=== PATIENT | female | born 1960 | race Caucasian/White ===

== ENCOUNTER → 2017-10-26 | Outpatient (CLI) | payer OTHER ==
[~2017-10-26] MED LIST: ABAC300; ACEBUTCAFT PO; ACET325 PO; ACYC800 PO; ALBIPROI INH; ALBU.083IS IH; ALBU90I INH; ALBU90OI INH; ALBU90OI6 INH; ALBU90OI61 INH; ALBUIS IH; ALPR.5 PO; AMIT10 PO; AMIT25 PO; ATOR10 PO; AZIT250 PO; BENZ100A PO; CEPH500 PO; CETI10 PO; CETI5 PO; CIPHYDOTSU OT; CIPR500 PO; CLIN150 PO; CLOP75 PO; CYAN1000I IM; CYCL10 PO; DEXA2 PO; DULO30 PO; EPIN.3I IM; ERGO400 PO; ESCI20 PO; FLUO.1OPO OD; FURO20 PO; Flonase 0.05% N16 GM; GABA300 PO; HYDACE5 PO; HYDHCL25 PO; HYDPAM50 PO; Keflex500 MG PO; LEVFLO500 PO; LORA10 PO; MELO7.5 PO; MONT10T PO; MUPI2TO TOP; Micro-K10 MEQ; Mupirocin22 GM TP; NAPR375 PO; NAPR500 PO; NAPR550 PO; NITR.4SL SL; OXYACE5T PO; OXYC5 PO; POTCHL10ER PO; PRED10 PO; PSEU120ER PO; RANI150 PO; RXCYCL10 PO; RXHYDACE PO; RXNAPNA550 PO; TOPI25 PO; TRAM50 PO; TRIA80TC TOP; Ultram50 MG PO; VALACYCLOVIR1000 MG PO; ZOLP10 PO
== END ==
LOC: LAB 11:15 → LAB SHORT 11:15
DX: L98.499 Non-pressure chronic ulcer of skin of other sites with unspecified severity (principal)
CPT/HCPCS: 87070; 87205

== ENCOUNTER → 2018-10-03 | Outpatient (CLI) | payer OTHER | END | disposition home or self-care (01) | LOC: LAB 19:04 → LAB SHORT 19:04 | DX: N39.0 Urinary tract infection, site not specified (principal) | CPT/HCPCS: 87086 ==

== ENCOUNTER 2022-09-01 10:47 | Emergency (ER) | payer OTHER ==
[~2022-09-01] VITALS: Ht 149.9 cm; Wt 77.6 kg
[~2022-09-01 10:47] MED LIST changes: +HYDR1TAB94 PO
[2022-09-01 11:48] LABS: BASOPHILS ABSOLUTE AUTO 0.06 K/mm3 (0.00-0.23); BASOPHILS PERCENT AUTO 1 % (0-2); EOSINOPHILS ABSOLUTE AUTO 0.28 K/mm3 (0.00-0.68); EOSINOPHILS PERCENT AUTO 3 % (0-6); Hematocrit 38.1 % (33.0-51.0); Hemoglobin 12.3 g/dL (11.5-16.0); IMMATURE GRAN ABSOLUTE AUTO 0.09 K/mm3 (0.00-0.10); IMMATURE GRAN PERCENT AUTO 1 % (0-1); LYMPHOCYTES ABSOLUTE AUTO 2.21 K/mm3 (0.84-5.20); LYMPHOCYTES PERCENT AUTO 22 % (21-46); MONOCYTES ABSOLUTE AUTO 0.93 K/mm3 (0.16-1.47); MONOCYTES PERCENT AUTO 9 % (4-13); Mean Corpuscular HGB Conc 32.3 g/dL (31.5-36.5); Mean Corpuscular Volume 84 fL (80-100); Mean Platelet Volume 8.4 fL (9.1-12.4); NEUTROPHILS ABSOLUTE AUTO 6.58 K/mm3 (1.96-9.15); NEUTROPHILS PERCENT AUTO 65 % (41-73); Platelet Count 351 K/mm3 (150-400); RDW Coefficient Variation 18.8 % (11.7-14.2); RDW Standard Deviation 57.1 fL (35.1-46.3); Red Blood Cell Count 4.56 M/mm3 (3.80-5.20); White Blood Cell Count 10.15 K/mm3 (4.00-11.30)
[2022-09-01 12:02] LABS: Albumin, Blood 3.1 g/dL (3.4-5.0); Albumin/Globulin Ratio 0.8 (0.8-1.8); Bilirubin, Total 0.2 mg/dL (0.1-1.0); Bun/Creatinine Ratio 36.6 (12.0-20.0); Calcium, Blood 8.9 mg/dL (8.5-10.1); Creatinine, Blood 0.68 mg/dL (0.40-1.00); Globulin, Blood 3.7 g/dL (2.2-4.0); Potassium, Blood 4.4 mmol/L (3.5-5.5); Total Protein, Blood 6.8 g/dL (6.4-8.2)
[2022-09-01] MEDS ORDERED: LOPE2C PO (15:20)
[2022-09-01] MEDS ORDERED: CEPH500 PO (15:20)
== END 2022-09-01 15:33 | disposition home or self-care (01) ==
LOC: ER 10:47
PROVIDERS: Student in an Organized Health Care Education/Training Program
DX: L03.113 Cellulitis of right upper limb (principal); Z88.8 Allergy status to other drugs, medicaments and biological substances; Z88.0 Allergy status to penicillin; Z88.5 Allergy status to narcotic agent; Z88.1 Allergy status to other antibiotic agents; Z88.6 Allergy status to analgesic agent; Z88.2 Allergy status to sulfonamides; Z79.899 Other long term (current) drug therapy; F17.210 Nicotine dependence, cigarettes, uncomplicated
CPT/HCPCS: 36415; 80053; 85025; J1885

== ENCOUNTER → 2023-03-22 | Outpatient (CLI) | payer OTHER ==
[~2023-03-22] MED LIST changes: +AMITRIPTYLINE100 M2 PO; +LOPE2C PO; +MYRBETRIQ50 MG PO; +PROAIR DIGIHAL90 MCG IH; +SITA50T2 PO; +TIZA4 PO
== END ==
LOC: PLD 07:50 → LAB SHORT 07:50
DX: R23.4 Changes in skin texture (principal)
CPT/HCPCS: 88305; 88312; 88313

== ENCOUNTER → 2023-04-09 | Outpatient (CLI) | payer OTHER ==
[2023-04-09 10:32] LABS: BASOPHILS ABSOLUTE AUTO 0.09 K/mm3 (0.00-0.23); BASOPHILS PERCENT AUTO 1 % (0-2); EOSINOPHILS ABSOLUTE AUTO 0.21 K/mm3 (0.00-0.68); EOSINOPHILS PERCENT AUTO 2 % (0-6); Hematocrit 40.6 % (33.0-51.0); IMMATURE GRAN ABSOLUTE AUTO 0.03 K/mm3 (0.00-0.10); IMMATURE GRAN PERCENT AUTO 0 % (0-1); LYMPHOCYTES ABSOLUTE AUTO 1.89 K/mm3 (0.84-5.20); LYMPHOCYTES PERCENT AUTO 19 % (21-46); MONOCYTES ABSOLUTE AUTO 0.79 K/mm3 (0.16-1.47); MONOCYTES PERCENT AUTO 8 % (4-13); Mean Corpuscular HGB 26.8 pg (26.0-34.0); Mean Corpuscular Volume 84 fL (80-100); Mean Platelet Volume 8.6 fL (9.1-12.4); NEUTROPHILS ABSOLUTE AUTO 6.71 K/mm3 (1.96-9.15); NEUTROPHILS PERCENT AUTO 69 % (41-73); Platelet Count 376 K/mm3 (150-400); RDW Coefficient Variation 18.2 % (11.7-14.2); RDW Standard Deviation 55.6 fL (35.1-46.3); Red Blood Cell Count 4.85 M/mm3 (3.80-5.20); White Blood Cell Count 9.72 K/mm3 (4.00-11.30)
== END | disposition home or self-care (01) ==
LOC: LAB SHORT 10:27 → LAB 10:27
PROVIDERS: Physician Assistant
DX: J34.0 Abscess, furuncle and carbuncle of nose (principal); J32.9 Chronic sinusitis, unspecified
CPT/HCPCS: 85025; 86695; 86696

== ENCOUNTER → 2023-04-09 | Outpatient (CLI) | payer OTHER | END | disposition home or self-care (01) | LOC: LAB 10:11 → LAB SHORT 10:11 | DX: J34.0 Abscess, furuncle and carbuncle of nose (principal) | CPT/HCPCS: 87070; 87077; 87147; 87186; 87205 ==

== ENCOUNTER → 2023-05-06 | Outpatient (CLI) | payer OTHER ==
[~2023-05-06] MED LIST changes: +ATORVASTATIN CA80 M1 PO; +METFORMIN HCL500 M3 PO; +Norco 5-325 MG PO; +TIZANIDINE HCL2 M1 PO
== END ==
LOC: LAB 14:52 → LAB SHORT 14:52
PROVIDERS: Physician Assistant
DX: A49.02 Methicillin resistant Staphylococcus aureus infection, unspecified site (principal)
CPT/HCPCS: 86695; 86696

== ENCOUNTER 2023-05-09 11:26 | Inpatient (IN) | payer OTHER ==
[~2023-05-09] VITALS: Ht 149.9 cm; Wt 80.1 kg
[~2023-05-09 11:26] MED LIST changes: -ATORVASTATIN CA80 M1 PO; -METFORMIN HCL500 M3 PO; -Norco 5-325 MG PO; -TIZANIDINE HCL2 M1 PO
--- NOTE | 2023-05-09 12:45 | NUR ---
pt arrived as direct admit, pt [id number], ambulates well. notified dr. lee, physician, of her arrival. pt reports significant pain but is managing at this time. pt requested to be switched to a confidential status r/t ex spouse and requested no visitors or calls except from roomate and son. notified primer charger and admitting to change status. pt thankful. report given to primary rn Nisreen. pt has call light.
[2023-05-09 12:58] VITALS: BP 108/70
[2023-05-09] MEDS ORDERED: ATORVASTATIN CA80 M1 PO (13:26)
[2023-05-09] MEDS ORDERED: GABA300 PO (13:27)
[2023-05-09] MEDS ORDERED: Norco 5-325 MG PO (13:28)
[2023-05-09] MEDS ORDERED: HYDPAM50 PO (13:29)
[2023-05-09] MEDS ORDERED: METFORMIN HCL500 M3 PO (13:30)
[2023-05-09] MEDS ORDERED: MONT10T PO (13:31)
[2023-05-09] MEDS ORDERED: TIZANIDINE HCL2 M1 PO (13:32)
[2023-05-09 13:56] LABS: BASOPHILS ABSOLUTE AUTO 0.06 K/mm3 (0.00-0.23); BASOPHILS PERCENT AUTO 0 % (0-2); EOSINOPHILS PERCENT AUTO 1 % (0-6); Hematocrit 40.7 % (33.0-51.0); Hemoglobin 13.4 g/dL (11.5-16.0); IMMATURE GRAN ABSOLUTE AUTO 0.07 K/mm3 (0.00-0.10); IMMATURE GRAN PERCENT AUTO 0 % (0-1); LYMPHOCYTES ABSOLUTE AUTO 2.16 K/mm3 (0.84-5.20); LYMPHOCYTES PERCENT AUTO 14 % (21-46); MONOCYTES ABSOLUTE AUTO 1.26 K/mm3 (0.16-1.47); MONOCYTES PERCENT AUTO 8 % (4-13); Mean Corpuscular HGB 27.5 pg (26.0-34.0); Mean Corpuscular HGB Conc 32.9 g/dL (31.5-36.5); Mean Corpuscular Volume 84 fL (80-100); Mean Platelet Volume 8.7 fL (9.1-12.4); NEUTROPHILS ABSOLUTE AUTO 12.15 K/mm3 (1.96-9.15); NEUTROPHILS PERCENT AUTO 76 % (41-73); Platelet Count 404 K/mm3 (150-400); RDW Coefficient Variation 17.8 % (11.7-14.2); RDW Standard Deviation 54.6 fL (35.1-46.3); Red Blood Cell Count 4.87 M/mm3 (3.80-5.20)
--- NOTE | 2023-05-09 14:15 | NUR ---
GEOPHYSICIST IS LOCKED IN DRAWER 211
[2023-05-09 14:19] LABS: Albumin, Blood 3.2 g/dL (3.4-5.0); Albumin/Globulin Ratio 0.8 (0.8-1.8); Bilirubin, Total 0.4 mg/dL (0.1-1.0); Bun/Creatinine Ratio 23.8 (12.0-20.0); Calcium, Blood 9.6 mg/dL (8.5-10.1); Creatinine, Blood 0.63 mg/dL (0.40-1.00); Globulin, Blood 4.2 g/dL (2.2-4.0); Potassium, Blood 3.9 mmol/L (3.5-5.5); Total Protein, Blood 7.4 g/dL (6.4-8.2)
[2023-05-09 16:53] VITALS: BP 122/66
--- NOTE | 2023-05-09 18:31 | NUR ---
SHIFT SUMMARY NEW ADMIT FOR FACIAL CELLULITIS. IV ABX RUNNING, TOLERATING PO INTAKE. AMBULATORY IN ROOM, AND HALLS. VSS, PAIN MANAGED WITH PO MEDICATION. AOX4. PLAN FOR ENT CONSULT. NOTED SWELLING AND REDDNESS OUTLINED WITH MARKER. DENIES DIFFICULTY BREATHING AND SOB. ABLE TO EAT SOFT DIET.PATIENT IS AWARE OF UPDATED PLAN. CALL LIGHT IN REACH.
[2023-05-09 20:51] VITALS: BP 118/66
--- NOTE | 2023-05-10 04:25 | NUR ---
SHIFT SUMMARY NOC. PT A/O X4 THIS SHIFT. PT NPO AFTER MIDNIGHT ASIDE FROM TYLENOL FOR PAIN. PT VOIDING URINE AND INDEPENDENT IN THE ROOM. PT'S LEFT JAW IS OUTLINED AND NOT PROGRESSING OUTSIDE LINES. SMALL AMOUNT OF PERULENT DRAINAGE NOTED DURING SHIFT. PT MEDICATED FOR PAIN WITH RELIEF. PT RESTED WITH EYES CLOSED AND CALL LIGHT IN REACH.
[2023-05-10 04:56] VITALS: BP 116/66
[2023-05-10 07:15] VITALS: BP 98/64
[2023-05-10 08:27] LABS: BASOPHILS ABSOLUTE AUTO 0.07 K/mm3 (0.00-0.23); BASOPHILS PERCENT AUTO 1 % (0-2); EOSINOPHILS ABSOLUTE AUTO 0.53 K/mm3 (0.00-0.68); EOSINOPHILS PERCENT AUTO 4 % (0-6); Hematocrit 38.3 % (33.0-51.0); Hemoglobin 12.3 g/dL (11.5-16.0); IMMATURE GRAN ABSOLUTE AUTO 0.06 K/mm3 (0.00-0.10); IMMATURE GRAN PERCENT AUTO 1 % (0-1); LYMPHOCYTES ABSOLUTE AUTO 1.33 K/mm3 (0.84-5.20); LYMPHOCYTES PERCENT AUTO 11 % (21-46); MONOCYTES ABSOLUTE AUTO 1.13 K/mm3 (0.16-1.47); MONOCYTES PERCENT AUTO 9 % (4-13); Mean Corpuscular HGB 27.5 pg (26.0-34.0); Mean Corpuscular HGB Conc 32.1 g/dL (31.5-36.5); Mean Corpuscular Volume 86 fL (80-100); Mean Platelet Volume 8.6 fL (9.1-12.4); NEUTROPHILS ABSOLUTE AUTO 9.13 K/mm3 (1.96-9.15); NEUTROPHILS PERCENT AUTO 75 % (41-73); Platelet Count 356 K/mm3 (150-400); RDW Coefficient Variation 17.9 % (11.7-14.2); RDW Standard Deviation 55.9 fL (35.1-46.3); Red Blood Cell Count 4.47 M/mm3 (3.80-5.20); White Blood Cell Count 12.25 K/mm3 (4.00-11.30)
[2023-05-10 08:52] LABS: Bun/Creatinine Ratio 23.3 (12.0-20.0); Calcium, Blood 9.3 mg/dL (8.5-10.1); Creatinine, Blood 0.99 mg/dL (0.40-1.00); Potassium, Blood 4.9 mmol/L (3.5-5.5)
--- NOTE | 2023-05-10 11:30 | NUR ---
DR. COUGHLIN WAS JUST AT PATIENTS BEDSIDE TO DO AN I&D OF HER LEFT FACIAL CHEEK. DR. COUGHLIN FLUSHED THE INCISION AND THEN PACKED IDOFOAM PACKING IN HER LEFT CHEEK. DR. COUGHLIN REPORTED "REPACK THE LEFT CHEEK IDOFOAM DAILY AND CONTINUE IV ABX UNTIL THE SWELLING IN THE CHEEK HAS GONE DOWN. NO NEED TO FOLLOW UP WITH ME AFTER". PATIENT TOLERATED THE PROCEDURE WELL. SHE IS SITTING UP IN BED WITH CALL LIGHT IN REACH.
[2023-05-10 14:32] VITALS: BP 96/48
--- NOTE | 2023-05-10 15:49 | NUR ---
SHIFT SUMMARY: LEFT FACIAL SWELLING NO SIGINIFICANT CHANGES SINCE DR. COUGHLIN CAME BY EARLIER THIS SHIFT. PATIENTS LEFT FACIAL CHEEK IS STILL SWOLLEN AND RED WITH THE INCISION FROM DR. COUGHLIN THAT IS OPEN TO AIR. A SMALL TAB OF THE IDOFOAM STRIP IS HANGING OUT THAT DR. COUGHLIN PACKED AND IS STILL INTACT. PATIENT REPORTS A "SORE" FEELING TO THE LEFT SIDE OF HER FACE. PAIN IS MANAGED WITH PO NORCO AT THIS TIME. THIS NURSE EDUCATED THROUGHOUT SHIFT TO NOT PICK AT HER CHEEK SO NOT CAUSE MORE INFECTION RISK/INFLAMMATION TO HER CHEEK. PATIENT VERBALIZED UNDERSTANDING AND HAD NO FURTHER QUESTIONS AT THIS TIME. SHE IS TOLERATING PO INTAKE AND IS VOIDING. PATIENT IS INDEP. IN THE ROOM. SHE IS SITTING AT THE SIDE OF THE BED WITH CALL LIGHT IN REACH. THE PLAN IS TO CONTINUE IV ABX AND PAIN MANAGEMENT.
[2023-05-10 19:12] VITALS: BP 135/99
--- NOTE | 2023-05-11 04:32 | NUR ---
SHIFT SUMMARY PT ABLE TO REST T/O NIGHT. GETTING UP TO VOID, TOLERATING PO INTAKE. PT MEDICATED PER EMAR, PT STATES FEELING A FULLNESS IN HER FACE WHERE THR PACKING IS. REDNESS IS THE FACE HAS GONE DOWN, SCANT AMOUNT OF DRAINAGE COMING OUT. PT EAGER TO GO HOME. NO OTHER CONCERNS AT THIS TIME. CALL LIGHT WITHIN REACH.
[2023-05-11 04:42] VITALS: BP 111/53
[2023-05-11 04:48] LABS: BASOPHILS ABSOLUTE AUTO 0.06 K/mm3 (0.00-0.23); BASOPHILS PERCENT AUTO 1 % (0-2); EOSINOPHILS ABSOLUTE AUTO 0.54 K/mm3 (0.00-0.68); EOSINOPHILS PERCENT AUTO 7 % (0-6); Hematocrit 35.9 % (33.0-51.0); Hemoglobin 11.5 g/dL (11.5-16.0); IMMATURE GRAN ABSOLUTE AUTO 0.05 K/mm3 (0.00-0.10); IMMATURE GRAN PERCENT AUTO 1 % (0-1); LYMPHOCYTES ABSOLUTE AUTO 1.66 K/mm3 (0.84-5.20); LYMPHOCYTES PERCENT AUTO 21 % (21-46); MONOCYTES ABSOLUTE AUTO 0.86 K/mm3 (0.16-1.47); MONOCYTES PERCENT AUTO 11 % (4-13); Mean Corpuscular HGB 27.5 pg (26.0-34.0); Mean Corpuscular Volume 86 fL (80-100); Mean Platelet Volume 8.5 fL (9.1-12.4); NEUTROPHILS ABSOLUTE AUTO 4.89 K/mm3 (1.96-9.15); NEUTROPHILS PERCENT AUTO 61 % (41-73); Platelet Count 324 K/mm3 (150-400); RDW Coefficient Variation 17.5 % (11.7-14.2); RDW Standard Deviation 55.7 fL (35.1-46.3); Red Blood Cell Count 4.18 M/mm3 (3.80-5.20); White Blood Cell Count 8.06 K/mm3 (4.00-11.30)
[2023-05-11 05:26] LABS: Albumin, Blood 2.6 g/dL (3.4-5.0); Anion Gap 3 mmol/L (6-16); Blood Urea Nitrogen 27 mg/dL (8-24); CO2, Blood 30 mmol/L (21-32); Calcium, Blood 8.9 mg/dL (8.5-10.1); Chloride, Blood 108 mmol/L (98-108); Glomerular Filtration Rate 82 (60-); Glucose, Blood 149 mg/dL (70-99); Phosphorus, Blood 4.1 mg/dL (2.5-4.9); Potassium, Blood 4.4 mmol/L (3.5-5.5); Sodium, Blood 141 mmol/L (136-145)
[2023-05-11 07:32] VITALS: BP 121/43
[2023-05-11] MEDS ORDERED: CUBICIN RF500 M1 IV (11:28)
--- NOTE | 2023-05-11 12:41 | NUR ---
DISCHARGE NOTE: PATIENT WAS EDUCATED ON DISCHARGE INSTRUCTIONS. SHE VERBALIZED UNDERSTANDING OF INSTRUCTIONS AND HAD NO FURTHER QUESTIONS AT THIS TIME. HER HARD SCRIPT WAS GIVEN TO THE PATIENT. HER LEFT FACIAL CHEEK HAS PACKING THAT WAS PLACED BY THIS NURSE THIS SHIFT AND IS INTACT. PATIENT HAS A SMALL AMOUNT OF IDOFOAM STRIP IN HER INCISION SITE PER DR. COUGHLIN'S VERBAL ORDERS FROM YESTERDAY TO BE CHANGED DAILY. HER POWERGLIDE WAS PLACED AND IS IN HER LEFT FOREARM AND IS INTACT. SHE IS TOLERATING PO INTAKE AND IS VOIDING. PATIENT IS DRESSED AND HAS PERSONAL ITEMS IN THE ROOM GATHERED. SHE IS AWAITING FOR HER RIDE TO PICK HER UP AND TAKE HER HOME.
--- NOTE | 2023-05-11 13:03 | NUR ---
PATIENT REFUSED A WHEELCHAIR AND IS WALKING OUT TO HER RIDE. SHE HAS ALL OF HER PERSONAL BELONGINGS IN HAND.
== END 2023-05-11 13:04 | disposition home or self-care (01) | DRG 638 ==
LOC: SURS 11:26
PROVIDERS: Family Medicine; ADMIT Family Medicine
PROC: 0J913ZZ Drainage of Face Subcutaneous Tissue and Fascia, Percutaneous Approach (ICD-10-PCS; principal; 2023-05-10)
DX: E11.628 Type 2 diabetes mellitus with other skin complications (principal); L02.01 Cutaneous abscess of face; L03.211 Cellulitis of face; J44.9 Chronic obstructive pulmonary disease, unspecified; M79.7 Fibromyalgia; F41.9 Anxiety disorder, unspecified; B95.62 Methicillin resistant Staphylococcus aureus infection as the cause of diseases classified elsewhere; N32.81 Overactive bladder; E11.40 Type 2 diabetes mellitus with diabetic neuropathy, unspecified; Z88.1 Allergy status to other antibiotic agents; Z88.2 Allergy status to sulfonamides; Z88.5 Allergy status to narcotic agent; Z88.0 Allergy status to penicillin; Z88.8 Allergy status to other drugs, medicaments and biological substances; Z86.73 Personal history of transient ischemic attack (TIA), and cerebral infarction without residual deficits; Z79.891 Long term (current) use of opiate analgesic; Z79.84 Long term (current) use of oral hypoglycemic drugs; Z79.899 Other long term (current) drug therapy
CPT/HCPCS: 36415; 70487; 80048; 80053; 80069; 82947; 85025; 85651; 86141; 96374; 96375; 96376; A9270; G0378; G0379; J0878; J1885; J7050; Q9967

== ENCOUNTER 2023-05-12 04:30 | Day surgery (SDC) | payer OTHER ==
[~2023-05-12 04:30] MED LIST changes: +ATORVASTATIN CA80 M1 PO; +CUBICIN RF500 M1 IV; +METFORMIN HCL500 M3 PO; +Norco 5-325 MG PO; +TIZANIDINE HCL2 M1 PO
[2023-05-12 15:24] VITALS: BP 119/71
== END 2023-05-12 15:51 | disposition home or self-care (01) ==
LOC: ATC 04:30
DX: L03.211 Cellulitis of face (principal); Z87.891 Personal history of nicotine dependence; J44.9 Chronic obstructive pulmonary disease, unspecified; Z86.73 Personal history of transient ischemic attack (TIA), and cerebral infarction without residual deficits; E11.40 Type 2 diabetes mellitus with diabetic neuropathy, unspecified; E78.5 Hyperlipidemia, unspecified; F41.9 Anxiety disorder, unspecified; Z88.2 Allergy status to sulfonamides; Z88.5 Allergy status to narcotic agent; Z88.0 Allergy status to penicillin; Z88.1 Allergy status to other antibiotic agents; Z88.8 Allergy status to other drugs, medicaments and biological substances
CPT/HCPCS: 96365; J0878

== ENCOUNTER 2023-05-13 03:21 | Day surgery (SDC) | payer OTHER ==
[2023-05-13 15:03] VITALS: BP 118/66
== END 2023-05-13 15:21 | disposition home or self-care (01) ==
LOC: ATC 03:21
DX: L03.211 Cellulitis of face (principal); J44.9 Chronic obstructive pulmonary disease, unspecified; E78.5 Hyperlipidemia, unspecified; F41.9 Anxiety disorder, unspecified; E11.40 Type 2 diabetes mellitus with diabetic neuropathy, unspecified; Z87.891 Personal history of nicotine dependence; Z88.1 Allergy status to other antibiotic agents; Z88.2 Allergy status to sulfonamides; Z88.6 Allergy status to analgesic agent; Z88.5 Allergy status to narcotic agent; Z88.0 Allergy status to penicillin; Z88.8 Allergy status to other drugs, medicaments and biological substances; Z79.899 Other long term (current) drug therapy
CPT/HCPCS: 96365; 99211; J0878

== ENCOUNTER 2023-05-14 05:27 | Day surgery (SDC) | payer OTHER ==
[2023-05-14 14:48] VITALS: BP 141/61
--- NOTE | 2023-05-14 15:12 | NUR ---
REVIEWED DC INSTRUCTIONS WITH PATIENT SHE HAD QUESTIONS ABOUT NOT TAKING ATORVASTATIN. REVIEWED MED LIST AND DC SUMMARY. HOLD ATORVASTATIN WHILE ON DAPTOMYCIN THERE ARE INTERACTIONS BETWEEN THE TWO MEDS IS WHAT THE MD HAD DICATATED IN THD DC SUMMARY. PT VERBALIZED UNDERSTANDING. SHE WILL FOLLOW UP WITH HER PCP.
== END 2023-05-14 15:10 | disposition home or self-care (01) ==
LOC: ATC 05:27
DX: L03.211 Cellulitis of face (principal); J44.9 Chronic obstructive pulmonary disease, unspecified; E78.5 Hyperlipidemia, unspecified; F41.9 Anxiety disorder, unspecified; E11.40 Type 2 diabetes mellitus with diabetic neuropathy, unspecified; Z87.891 Personal history of nicotine dependence; Z88.1 Allergy status to other antibiotic agents; Z88.2 Allergy status to sulfonamides; Z88.5 Allergy status to narcotic agent; Z88.0 Allergy status to penicillin; Z88.8 Allergy status to other drugs, medicaments and biological substances; Z79.899 Other long term (current) drug therapy
CPT/HCPCS: 96365; 99211; J0878

== ENCOUNTER 2023-05-15 02:05 | Day surgery (SDC) | payer OTHER ==
[2023-05-15 14:51] VITALS: BP 101/75
== END 2023-05-15 15:14 | disposition home or self-care (01) ==
LOC: ATC 02:05
DX: L03.211 Cellulitis of face (principal); J44.9 Chronic obstructive pulmonary disease, unspecified; F41.9 Anxiety disorder, unspecified; Z86.73 Personal history of transient ischemic attack (TIA), and cerebral infarction without residual deficits; E11.40 Type 2 diabetes mellitus with diabetic neuropathy, unspecified; E78.5 Hyperlipidemia, unspecified; Z87.891 Personal history of nicotine dependence; Z88.1 Allergy status to other antibiotic agents; Z88.5 Allergy status to narcotic agent; Z88.0 Allergy status to penicillin; Z88.2 Allergy status to sulfonamides
CPT/HCPCS: 96365; 99211; J0878

== ENCOUNTER 2023-05-16 05:50 | Day surgery (SDC) | payer OTHER ==
[2023-05-16 15:30] VITALS: BP 105/51
== END 2023-05-16 22:52 | disposition home or self-care (01) ==
LOC: ATC 05:50
DX: L03.211 Cellulitis of face (principal); J44.9 Chronic obstructive pulmonary disease, unspecified; E78.5 Hyperlipidemia, unspecified; E11.42 Type 2 diabetes mellitus with diabetic polyneuropathy; Z88.2 Allergy status to sulfonamides; Z88.5 Allergy status to narcotic agent; Z88.0 Allergy status to penicillin
CPT/HCPCS: 96365; 99211; J0878

== ENCOUNTER 2023-05-17 01:46 | Day surgery (SDC) | payer OTHER ==
[2023-05-17 15:18] VITALS: BP 137/66
== END 2023-05-17 15:45 | disposition home or self-care (01) ==
LOC: ATC 01:46
DX: L03.211 Cellulitis of face (principal); J44.9 Chronic obstructive pulmonary disease, unspecified; E78.5 Hyperlipidemia, unspecified; E11.40 Type 2 diabetes mellitus with diabetic neuropathy, unspecified
CPT/HCPCS: 96365; J0878

== ENCOUNTER 2023-05-18 04:58 | Day surgery (SDC) | payer OTHER ==
[2023-05-18 15:02] VITALS: BP 131/70
== END 2023-05-18 15:33 | disposition home or self-care (01) ==
LOC: ATC 04:58
DX: L03.211 Cellulitis of face (principal)
CPT/HCPCS: 96365; J0878

== ENCOUNTER → 2023-07-05 | Outpatient (CLI) | payer OTHER | LOC: LAB 09:58 → LAB SHORT 09:58 | DX: L03.115 Cellulitis of right lower limb (principal) | CPT/HCPCS: 87070; 87077; 87147; 87186; 87205 ==

== ENCOUNTER 2023-07-13 09:00 | Emergency (ER) | payer OTHER ==
[~2023-07-13] VITALS: Ht 149.9 cm; Wt 78.5 kg
[2023-07-13] MEDS ORDERED: Ventolin/Prove6.7 GM (09:38)
[2023-07-13] MEDS ORDERED: FLUTICASONE PRO16 GM (09:40)
[2023-07-13] MEDS ORDERED: ATORVASTATIN CA20 MG PO (09:40)
[2023-07-13] MEDS ORDERED: AMITRIPTYLINE100 M6 PO (09:40)
[2023-07-13 09:42] LABS: BASOPHILS ABSOLUTE AUTO 0.09 K/mm3 (0.00-0.23); BASOPHILS PERCENT AUTO 1 % (0-2); EOSINOPHILS ABSOLUTE AUTO 0.18 K/mm3 (0.00-0.68); EOSINOPHILS PERCENT AUTO 1 % (0-6); Hemoglobin 12.3 g/dL (11.5-16.0); IMMATURE GRAN ABSOLUTE AUTO 0.41 K/mm3 (0.00-0.10); IMMATURE GRAN PERCENT AUTO 2 % (0-1); LYMPHOCYTES ABSOLUTE AUTO 4.38 K/mm3 (0.84-5.20); LYMPHOCYTES PERCENT AUTO 23 % (21-46); MONOCYTES ABSOLUTE AUTO 0.93 K/mm3 (0.16-1.47); MONOCYTES PERCENT AUTO 5 % (4-13); Mean Corpuscular HGB 28.4 pg (26.0-34.0); Mean Corpuscular HGB Conc 32.4 g/dL (31.5-36.5); Mean Corpuscular Volume 88 fL (80-100); Mean Platelet Volume 8.4 fL (9.1-12.4); NEUTROPHILS ABSOLUTE AUTO 13.14 K/mm3 (1.96-9.15); NEUTROPHILS PERCENT AUTO 69 % (41-73); Platelet Count 440 K/mm3 (150-400); RDW Standard Deviation 51.3 fL (35.1-46.3); Red Blood Cell Count 4.33 M/mm3 (3.80-5.20); White Blood Cell Count 19.13 K/mm3 (4.00-11.30)
[2023-07-13 10:14] LABS: Albumin, Blood 2.6 g/dL (3.4-5.0); Albumin/Globulin Ratio 0.7 (0.8-1.8); Bilirubin, Total 0.1 mg/dL (0.1-1.0); Bun/Creatinine Ratio 25.5 (12.0-20.0); Calcium, Blood 8.7 mg/dL (8.5-10.1); Creatinine, Blood 0.63 mg/dL (0.40-1.00); Globulin, Blood 3.8 g/dL (2.2-4.0); Potassium, Blood 4.2 mmol/L (3.5-5.5); Total Protein, Blood 6.4 g/dL (6.4-8.2)
[2023-07-13] MEDS ORDERED: CEFD300 PO (13:42)
[2023-07-13] MEDS ORDERED: Hydroxyzine HCl25 MG PO (13:43)
[2023-07-13 14:00] VITALS: BP 110/74
== END 2023-07-13 14:10 | disposition home or self-care (01) ==
LOC: ER 09:00
PROVIDERS: Emergency Medicine
DX: J18.9 Pneumonia, unspecified organism (principal); T78.2XXA Anaphylactic shock, unspecified, initial encounter; R73.9 Hyperglycemia, unspecified; M79.7 Fibromyalgia; Z86.73 Personal history of transient ischemic attack (TIA), and cerebral infarction without residual deficits; E27.1 Primary adrenocortical insufficiency; F17.210 Nicotine dependence, cigarettes, uncomplicated; Z79.84 Long term (current) use of oral hypoglycemic drugs; Z79.899 Other long term (current) drug therapy; Z88.0 Allergy status to penicillin; Z88.1 Allergy status to other antibiotic agents; Z88.2 Allergy status to sulfonamides; Z88.5 Allergy status to narcotic agent; Z88.8 Allergy status to other drugs, medicaments and biological substances; Z88.6 Allergy status to analgesic agent
CPT/HCPCS: 71045; 80053; 82947; 83880; 84145; 84484; 85025; 93005; 93010; 96361; 96372-59; 96374; 96375; 99285-25; A9270; J0171; J2405; J2930; J7030

== ENCOUNTER → 2025-01-06 | Outpatient (CLI) | payer OTHER ==
[~2025-01-06] MED LIST changes: +AMITRIPTYLINE100 M6 PO; +ATORVASTATIN CA20 MG PO; +CEFD300 PO; +FLUTICASONE PRO16 GM; +Hydroxyzine HCl25 MG PO; +Ventolin/Prove6.7 GM
[2025-01-08 16:13] LABS: HSV 1 SUBTYPE BY PCR Not Detected; HSV 2 SUBTYPE BY PCR Not Detected; HSV SUBTYPE SOURCE RIGHT LABIA
== END ==
LOC: LAB 16:15 → LAB SHORT 16:15
PROVIDERS: Dermatology
DX: L08.9 Local infection of the skin and subcutaneous tissue, unspecified (principal)
CPT/HCPCS: 87070; 87205; 87529